=== PATIENT | male | born 1990 | race African-American/Black ===

== ENCOUNTER 2025-01-11 03:16 | Emergency (ER) | payer OTHER ==
[~2025-01-11] VITALS: Ht 188 cm; Wt 84.1 kg
[2025-01-11 03:56] VITALS: BP 120/93; PULSE 52; RESP 18; TEMP 98.1; O2SAT 99
== END 2025-01-11 04:29 | disposition home or self-care (01) ==
LOC: EMS 03:22
DX: H61.22 Impacted cerumen, left ear (principal); F17.210 Nicotine dependence, cigarettes, uncomplicated
CPT/HCPCS: 69209; 99282; Z7502